=== PATIENT | male | born 1985 | race African-American/Black ===

== ENCOUNTER 2020-01-07 21:35 | Emergency (ER) | payer SELFPAY | END 2020-01-07 22:06 | disposition left against medical advice (07) | LOC: MADERS 21:35 | DX: R10.9 Unspecified abdominal pain (principal); R10.817 Generalized abdominal tenderness; K50.90 Crohn's disease, unspecified, without complications; F17.200 Nicotine dependence, unspecified, uncomplicated | CPT/HCPCS: 99284 ==